=== PATIENT | female | born 1940 | race Asian ===

== ENCOUNTER 2017-08-10 19:14 | Inpatient (IN) | payer OTHER, BC ==
[2017-08-10] MEDS ORDERED: AZITHROMYCIN IV 500 MG in D5W 250 ML IV ONE (19:21)
[2017-08-10] MEDS ORDERED: methylPREDNISolone SOD SUCC 125 MG/2 ML VIAL IVP ONE (19:21)
[2017-08-10] MEDS ORDERED: IPRATROPIUM/ALBUTEROL 3 ML DEYVIAL IH ONE (19:21)
--- NOTE | 2017-08-10 19:21 | EDPHY ---
H & P Time Seen by Provider: 08/10/17 19:15 - Personal History Tetanus Vaccine Date: 2009 - Medical/Surgical History Hx Asthma: No Hx Chronic Respiratory Disease: No Hx Diabetes: No Hx Cardiac Disease: No Hx Renal Disease: No Hx Cirrhosis: No Hx Alcoholism: No Hx HIV/AIDS: No Hx Splenectomy or Spleen Trauma: No Other PMH: L HIP REPLACEMENT, HTN - Social History Smoking Status: Never smoked Constitutional: Initial Vital Signs Temperature (C) 36.4 C 08/10/17 19:16 Heart Rate 102 H 08/10/17 19:16 Respiratory Rate 26 H 08/10/17 19:16 Blood Pressure 183/138 H 08/10/17 19:16 O2 Sat (%) 97 08/10/17 19:16 O2 Delivery Mode CPAP Allergies/Adverse Reactions: Penicillins Allergy (Unknown, Verified 08/10/17 19:24) Home Medications: Medication Instructions Recorded Azithromycin [Zithromax] 250 mg PO DAILY 08/10/17 Bimatoprost 0.01% [Lumigan 0.01% 1 drops EACHEYE DAILY 08/10/17 (*)] Losartan Potassium [Cozaar] 100 mg PO DAILY 08/10/17 Metoprolol Succinate Xr [Toprol Xl 100 mg PO DAILY 08/10/17 100 mg (*)] Rosuvastatin Calcium [Crestor 5mg] 5 mg PO DAILY 08/10/17 Timolol 0.5% [TIMOPTIC 0.5% (*)] 1 drops EACHEYE DAILY 08/10/17 metFORMIN HCL [Glucophage 500 mg 500 mg PO BIDMEAL 08/10/17 (*)] Medical Decision Making - Diagnostics Imaging: I viewed and interpreted images myself ED Course/Re-evaluation: CHIEF COMPLAINT: Shortness of breath HISTORY OF PRESENT ILLNESS: This patient is a 77 y/o female arriving emergently via EMS for evaluation of shortness of breath. She was playing bridge this evening when she suddenly began coughing and then slumped forward. Per EMS report, she was unresponsive and somnolent upon their arrival. EMS placed the patient on CPAP. Upon arrival at the emergency department, she is alert and answering questions appropriately. She remains tachypneic, and s currently on CPAP. She was recently diagnosed with a bronchial infection, and visited her primary care provider earlier today. She was placed on antibiotics at that time. She has a productive cough with pink-tinged sputum. She denies history of chronic lung disease. No fever, chest pain, vomiting, diarrhea, or other associated symptoms. REVIEW OF SYSTEMS: A 10 point review of systems was performed and is negative with the exception of the elements mentioned in the history of present illness. PHYSICAL EXAM: HR, BP, O2 Sat, RR. Temp noted General Appearance: Alert, well hydrated, appropriate, and non-toxic appearing. Head: Atraumatic without scalp tenderness or obvious injury Eyes: Pupils equal, round, reactive to light and accommodation, EOMI, no trauma , no injection. Ears: Clear bilaterally, no perforation, normal landmarks Nose: Atraumatic, no rhinorrhea, clear. Throat: There is no erythema or exudates, no lesions, normal tonsils, mucus membranes moist. Neck: Supple, nontender, no lymphadenopathy. Respiratory: Coarse rhonchi bilaterally. Cardiovascular: Regular rate and rhythm, no murmurs, rubs, or gallops. Good capillary refill all extremities. Gastrointestinal: Abdomen is soft, nontender, non-distended, no masses, no rebound, no guarding, no peritoneal signs. Musculoskeletal: Normal active ROM of all extremities, atraumatic. Neurological: Alert, appropriate, and interactive. Nonfocal neuro exam. Skin: No rashes, good turgor, no nodules on palpation. Past medical history: Hypertension. Hyperlipidemia. Glaucoma. Prediabetic Past surgical history: Noncontributory Family history: Noncontributory. Social history: Nonsmoker. Family at bedside. DIAGNOSTICS/PROCEDURES/CRITICAL CARE TIME: Critical care time spent by me, Dr. Wills, exclusively with this patient was 50 minutes, exclusive of PA time and exclusive of procedures. The organ system at risk was respiratory and I gave IV Ceftriaxone and Zithromax, steroids, DuoNeb, placed the patient on BiPAP, consulted with respiratory therapy, and admitted the patient to [facility] to prevent worsening of the patients condition. DIFFERENTIAL DIAGNOSIS: The differential diagnosis for the patient's shortness of breath and hypoxemia included but was not limited to pneumonia, myocardial infarction, acute mountain sickness, high altitude pulmonary edema, congestive heart failure, and pulmonary embolus. MEDICAL DECISION MAKIN:15 Met EMS at bedside. 77 year old female presents following a period of unresponsiveness secondary to respiratory distress. Exam reveals coarse rhonchi bilaterally. IV established. Plan for chest x-ray. Labs including CBC, chemistries, sepsis protocol. Plan to administer 1g IV Ceftriaxone, 500mg IV Zithromax. Patient placed on BiPAP by respiratory therapist at bedside. Plan to administer 125mg IV methylprednisolone and DuoNeb for symptom relief. 19:40 Lactic acid elevated at 7.3. Patient is in severe sepsis. I suspect this is due to her hypoxemia secondary to her respiratory distress and temporary apnea rather than septic shock. 19:47 Reviewed chest x-ray. Right lower and right middle lobe infiltrate. 2.5 cm laceration on the left posterior scalp 19:51 Reassessed patient. Spoke with patient's family. Reviewed x-ray with patient's family. Consulted with respiratory therapy. Patient continues to need intermittent BiPAP. Plan to admit to [facility]. Repeat lactic acid is 2.1. Elevated lactic acid earlier likely due to patient's hypoxemia. 20:[address] Ruiz, hospitalist. She accepts admission to [facility] for respiratory distress, pneumonia, hypoxemia, and severe sepsis. - Data Points Laboratory Results: Laboratory Results 08/10/17 19:21 08/10/17 19:21 08/10/17 08/10/17 08/10/17 21:01 19:57 19:21 WBC RBC Hgb Hct MCV MCH MCHC RDW Plt Count MPV Neut % (Auto) Lymph % (Auto) Plumas % (Auto) Eos % (Auto) Baso % (Auto) Nucleat RBC Rel Count Absolute Neuts (auto) Absolute Lymphs (auto) Absolute Monos (auto) Absolute Eos (auto) Absolute Basos (auto) Absolute Nucleated RBC Immature Gran % Immature Gran # VBG Lactic Acid 2.4 mmol/L H D mmol/L (0.7-2.1) Sodium 136 mEq/L mEq/L (134-144) Potassium 4.8 mEq/L mEq/L (3.5-5.2) Chloride 91 mEq/L L mEq/L (97-110) Carbon Dioxide 17 mEq/l L mEq/l (22-31) Anion Gap 28 mEq/L H mEq/L (8-16) BUN 11 mg/dL mg/dL (7-23) Creatinine 0.8 mg/dL mg/dL (0.6-1.0) Estimated GFR > 60 Glucose 229 mg/dL H mg/dL (70-100) Calcium 9.7 mg/dL mg/dL (8.5-10.4) Troponin I < 0.012 ng/mL ng/mL (0.000-0.034) NT-Pro-B Natriuret Pep Pending Procalcitonin Pending 08/10/17 08/10/17 19:21 19:21 WBC 10.46 10^3/uL H 10^3/uL (3.80-9.50) RBC 5.15 10^6/uL 10^6/uL (4.18-5.33) Hgb 17.4 g/dL H g/dL (12.6-16.3) Hct 52.9 % H % (38.0-47.0) MCV 102.7 fL H fL (81.5-99.8) MCH 33.8 pg pg (27.9-34.1) MCHC 32.9 g/dL g/dL (32.4-36.7) RDW 13.3 % % (11.5-15.2) Plt Count 216 10^3/uL 10^3/uL (150-400) MPV 11.6 fL fL (8.7-11.7) Neut % (Auto) 33.4 % L % (39.3-74.2) Lymph % (Auto) 50.2 % H % (15.0-45.0) Plumas % (Auto) 11.1 % % (4.5-13.0) Eos % (Auto) 4.2 % % (0.6-7.6) Baso % (Auto) 0.5 % % (0.3-1.7) Nucleat RBC Rel Count 0.0 % % (0.0-0.2) Absolute Neuts (auto) 3.50 10^3/uL 10^3/uL (1.70-6.50) Absolute Lymphs (auto) 5.25 10^3/uL H 10^3/uL (1.00-3.00) Absolute Monos (auto) 1.16 10^3/uL H 10^3/uL (0.30-0.80) Absolute Eos (auto) 0.44 10^3/uL H 10^3/uL (0.03-0.40) Absolute Basos (auto) 0.05 10^3/uL 10^3/uL (0.02-0.10) Absolute Nucleated RBC 0.00 10^3/uL 10^3/uL (0-0.01) Immature Gran % 0.6 % % (0.0-1.1) Immature Gran # 0.06 10^3/uL 10^3/uL (0.00-0.10) VBG Lactic Acid 7.3 mmol/L H mmol/L (0.7-2.1) Sodium Potassium Chloride Carbon Dioxide Anion Gap BUN Creatinine Estimated GFR Glucose Calcium Troponin I NT-Pro-B Natriuret Pep Procalcitonin Medications Given: Discontinued Medications Albuterol/Ipratropium (Duoneb) 3 ml IH EDNOW ONE Stop: 08/10/17 19:22 Last Admin: 08/10/17 19:57 Dose: 3 ml Azithromycin 500 mg/ Dextrose 255 mls @ 255 mls/hr IV EDNOW ONE PRN Reason: Protocol Stop: 08/10/17 20:20 Last Admin: 08/10/17 20:01 Dose: 255 mls Ceftriaxone Sodium/Dextrose (Rocephin 1 Gm (Premix)) 50 mls @ 100 mls/hr IV EDNOW ONE PRN Reason: Protocol Stop: 08/10/17 19:50 Last Admin: 08/10/17 19:38 Dose: 50 mls Sodium Chloride (Ns) 2,200 mls @ 4,400 mls/hr 30 ml/kg infuse over 30 min ( 2200 ml) IV EDNOW ONE PRN Reason: Protocol Stop: 08/10/17 20:19 Last Admin: 08/10/17 20:00 Dose: 2,200 mls Methylprednisolone Sodium Succinate (Solu-Medrol) 125 mg IVP EDNOW ONE Stop: 08/10/17 19:22 Last Admin: 08/10/17 19:38 Dose: 125 mg Departure - Departure Disposition: [facility] Inpatient Acute Clinical Impression: Hypoxemia, Severe sepsis Pneumonia Qualifiers: Pneumonia type: due to unspecified organism Laterality: right Lung location: lower lobe of lung Qualified Code(s): J18.1 - Lobar pneumonia, unspecified organism Condition: Serious Referrals: Patient,NotPresent [Unknown] - As per Instructions Report Scribed for: Erik A Elma Report Scribed by: Elise Glass Date of Report: 08/10/17 Time of Report: 20:07
[2017-08-10 19:37] LABS: % IMMATURE GRANULYOCYTES 0.6 % (0.0-1.1); ABSOLUTE IMMATURE GRANULOCYTES 0.06 10^3/uL (0.00-0.10); ADD DIFF? NO; ADD MORPH? NO; ADD SCAN? NO; ATYPICAL LYMPHOCYTE FLAG 20 (0-99); FRAGMENT RBC FLAG 0 (0-99); HEMATOCRIT 52.9 % (38.0-47.0); HEMOGLOBIN 17.4 g/dL (12.6-16.3); LEFT SHIFT FLG 0 (0-99); LIPEMIA HEMOLYSIS FLAG 80 (0-99); MEAN CELL HEMOGLOBIN 33.8 pg (27.9-34.1); MEAN CELL HEMOGLOBIN CONCENTR. 32.9 g/dL (32.4-36.7); MEAN CELL VOLUME 102.7 fL (81.5-99.8); MEAN PLATELET VOLUME 11.6 fL (8.7-11.7); PLATELET CLUMPS FLAG 0 (0-99); PLATELET COUNT 216 10^3/uL (150-400); RED BLOOD CELL COUNT 5.15 10^6/uL (4.18-5.33); RED CELL DISTRIBUTION WIDTH 13.3 % (11.5-15.2)
[2017-08-10] MEDS ORDERED: NS 2,200 ML IV ONE (19:50)
[2017-08-10 19:56] LABS: ANION GAP 28 mEq/L (8-16); CALCIUM 9.7 mg/dL (8.5-10.4); CARBON DIOXIDE 17 mEq/l (22-31); CHLORIDE 91 mEq/L (97-110); CREATININE 0.8 mg/dL (0.6-1.0); GLOMERULAR FILTRATION RATE > 60; GLUCOSE 229 mg/dL (70-100); POTASSIUM 4.8 mEq/L (3.5-5.2); SODIUM 136 mEq/L (134-144)
[2017-08-10 20:08] LABS: TROPONIN I < 0.012 ng/mL (0.000-0.034)
[2017-08-10] MEDS ORDERED: ACETAMINOPHEN 650 MG SUPP PR PRN (21:17)
[2017-08-10] MEDS ORDERED: ALBUTEROL 3 ML DEYVIAL IH PRN (21:17)
[2017-08-10] MEDS ORDERED: ONDANSETRON 4 MG/2 ML VIAL IVP PRN (21:17)
[2017-08-10] MEDS ORDERED: IOPAMIDOL (ISOVUE 370) 100 ML BTL IV ONE (21:39)
[2017-08-10 22:16] LABS: PROCALCITONIN 0.03 ng/mL (0.02-0.10)
[2017-08-10] MEDS ORDERED: D50W 25 GM/50 ML VIAL IVP PRN (22:33)
[2017-08-10 23:05] LABS: BICARBONATE 18 mEq/L (22-26); MEASURED OXYGEN SATURATION 98 % (92-95); PCO2 33 mmHg (34-38); PO2 147 mmHg (65-75); TCO2 19 mEq/L (23-27)
[2017-08-10 23:06] LABS: CPAP YES; O2 CONCENTRATIION 60 % (0-100); P/F RATIO 245 RATIO; PATIENT RATE 24; TOTAL RATE 8
--- NOTE | 2017-08-10 23:11 | GHP ---
[f rep st] HISTORY AND PHYSICAL DATE OF ADMISSION: 08/10/2017 CHIEF COMPLAINT: Cough, shortness of breath. HISTORY OF PRESENT ILLNESS: The patient is a 77-year-old female with history of hypertension and hyperlipidemia, who presented to the emergency department via EMS after she had sudden severe shortness of breath associated with an apneic episode, during which time she was unresponsive. She was playing bridge with some friends and she started coughing. It sounds like she may have had some mucus plugging as she was unable to move air effectively and subsequently slumped over. EMS was called and when they arrived they placed the patient on CPAP. Her condition improved on arrival to the ED where she was awake, alert and able to answer questions. She was started on BiPAP and continues on BiPAP during my interview. She recently traveled home on an airplane from the [facility]. Over the past 4 days , she has had a productive cough. She denies chest pain. She endorses orthopnea, but denies lower extremity edema. She denies fevers. Her states many years ago she had some problems with asthma and wheezing, though this has not persisted and she does not use inhalers. She saw her primary care physician today, who diagnosed her with bronchitis and started her on azithromycin. She has no history of chronic heart or lung disease. In the ED she was given ceftriaxone and azithromycin for suspected right lower lobe pneumonia. She is currently saturating 100% on BiPAP in the step-down unit and is admitted to the hospital for further management. PAST MEDICAL HISTORY: 1. Hypertension. 2. Hyperlipidemia. 3. Glaucoma. 4. Prediabetes. MEDICATIONS: Please see [employer] for completed outpatient medication list. ALLERGIES: Penicillin. FAMILY HISTORY: Reviewed and noncontributory. SOCIAL HISTORY: The patient is . She lives with her . She is a lifetime nonsmoker. No alcohol. She is independent. REVIEW OF SYSTEMS: A 10-point review of systems was performed and is negative except as stated in HPI. OBJECTIVE: VITAL SIGNS: Temperature is 36.4, current blood pressure 121/81, heart rate 85, respiratory rate 26, she is 98% on CPAP. GENERAL: Patient is awake, alert, oriented, in no acute distress. HEENT: Head is atraumatic, normocephalic. Pupils equal, round, and reactive to light. Extraocular muscles intact. Oropharynx is not visualized as she is wearing a BiPAP mask. NECK: Supple. There is no appreciable JVD, though this is difficult to assess with her straps from her BiPAP mask. HEART: Regular rate and rhythm without murmur. LUNGS: Reveal coarse breath sounds throughout both lung borjas with expiratory wheezes diffusely. ABDOMEN: Soft, nontender, nontender. Normoactive bowel tones. EXTREMITIES: She has trace bilateral lower extremity edema. Extremities otherwise warm, well perfused. NEUROLOGIC: Grossly nonfocal. She moves all 4 extremities. LABORATORY DATA: CBC reveals a white blood cell count of 10.5, with 33% neutrophils and 50% lymphocytes. Lactate on arrival was 7.3, repeat lactate is 2.4. Basic metabolic panel is remarkable for a chloride of 91, CO2 of 17, anion gap of 28, blood glucose 229, creatinine is normal at 0.8. Troponin is negative. Procalcitonin is 0.03. NT proBNP is pending. Chest x-ray is personally reviewed and interpreted, reveals diffuse increased interstitial markings with no focal consolidation, suspicious for possible viral pneumonia versus pulmonary edema. The EKG is ordered and currently pending. CT pulmonary angiogram is also pending. ASSESSMENT/PLAN: The patient is a 77-year-old female with history of hypertension, hyperlipidemia, who is admitted to the hospital with acute hypoxemic respiratory failure. 1. Acute hypoxemic respiratory failure. She received azithromycin and ceftriaxone in the ED. Procalcitonin is 0.03, which makes bacterial infection unlikely. I suspect her presentation is more consistent with a viral etiology and also considered heart failure though she does not otherwise appear volume overloaded. A BNP is pending. Echocardiogram is ordered for the morning. Will continue BiPAP, scheduled DuoNeb, p.r.n. albuterol nebs. Will empirically treat with Tamiflu. If respiratory pathogen panel is negative for flu, can discontinue her Tamiflu. A CT pulmonary angiogram was ordered and currently pending to rule out pulmonary embolism and better evaluate her lung parenchyma. Blood cultures are pending. A sputum culture is sent. Will keep her n.p.o. while she is on BiPAP. She received 125 mg of IV Solu-Medrol. Will continue oral prednisone for wheezing. 2. Anion gap metabolic acidosis. This is likely secondary to lactic acidosis. I do not think the elevated lactate of 7 represents sepsis, but rather she likely had a hypoperfused state given her respiratory arrest prior to arrival. A repeat lactate has already come down to 2.4. Will continue trend to normal. 3. Hyperglycemia. The patient carries a diagnosis of prediabetes. Her metformin is held given her contrast studies. Will check an A1c to evaluate for diabetes and provide sliding scale insulin for glycemic control. 4. Hypertension. She is currently normotensive. Will continue her losartan but hold her beta leodan for now given her wheezing. 5. Hyperlipidemia. Continue statin. DEEP VENOUS THROMBOSIS PROPHYLAXIS: Lovenox. CODE STATUS: Patient is full code. DISPOSITION: Admitted to inpatient status. Anticipate she will require greater than 48 hours hospitalization for ongoing management of her acute hypoxemic respiratory failure. /[id number]/MODL MTDD
--- NOTE | 2017-08-10 23:29 | CPEKG ---
Heart Rate: 81 RR Interval: 741 P-R Interval: 176 QRSD Interval: 82 QT Interval: 424 QTC Interval: 493 P Lincoln: 55 QRS Lincoln: 31 T Wave Lincoln: 80 EKG Severity - ABNORMAL ECG - EKG Impression: SINUS RHYTHM EKG Impression: BORDERLINE PROLONGED QT INTERVAL Electronically Signed By: Manjit Clark 12-Aug-2017 20:51:02
[2017-08-11 00:35] LABS: HEMOGLOBIN A1C 6.4 % (4.0-6.0)
[2017-08-11 04:54] LABS: % IMMATURE GRANULYOCYTES 0.5 % (0.0-1.1); ABSOLUTE IMMATURE GRANULOCYTES 0.03 10^3/uL (0.00-0.10); ADD DIFF? NO; ADD MORPH? NO; ATYPICAL LYMPHOCYTE FLAG 10 (0-99); HEMOGLOBIN 14.3 g/dL (12.6-16.3); LEFT SHIFT FLG 0 (0-99); LIPEMIA HEMOLYSIS FLAG 90 (0-99); RED CELL DISTRIBUTION WIDTH 13.2 % (11.5-15.2)
[2017-08-11 05:09] LABS: ADD SCAN? NO; FRAGMENT RBC FLAG 20 (0-99); HEMATOCRIT 40.9 % (38.0-47.0); MEAN CELL HEMOGLOBIN 33.5 pg (27.9-34.1); MEAN CELL VOLUME 95.8 fL (81.5-99.8); MEAN PLATELET VOLUME 11.2 fL (8.7-11.7); PLATELET CLUMPS FLAG 10 (0-99); PLATELET COUNT 165 10^3/uL (150-400); RED BLOOD CELL COUNT 4.27 10^6/uL (4.18-5.33)
[2017-08-11 05:12] LABS: ANION GAP 12 mEq/L (8-16); CALCIUM 8.2 mg/dL (8.5-10.4); CARBON DIOXIDE 21 mEq/l (22-31); CHLORIDE 107 mEq/L (97-110); CREATININE 0.6 mg/dL (0.6-1.0); GLOMERULAR FILTRATION RATE > 60; GLUCOSE 167 mg/dL (70-100); SODIUM 140 mEq/L (134-144)
[2017-08-11] MEDS: IPRATROPIUM/ALBUTEROL 3 ML DEYVIAL IH SCH ×4 (05:36→21:56)
[2017-08-11] MEDS: INSULIN LISPRO 100 UNIT/ML SC SCH ×3 (08:53→17:36)
[2017-08-11] MEDS: ROSUVASTATIN CALCIUM 10 MG TAB PO SCH (08:54)
[2017-08-11] MEDS: predniSONE 20 MG TAB PO SCH (08:54)
[2017-08-11] MEDS: TIMOLOL 0.5% 15 ML OPHT.BTL EACHEYE SCH (08:55)
[2017-08-11] MEDS: ENOXAPARIN 40 MG/0.4 ML SYR SC SCH (08:59)
[2017-08-11] MEDS ORDERED: NON-FORMULARY NEW DRUG (Losartan Potassium [Cozaar] 100 MG) PO SCH (09:00)
[2017-08-11] MEDS ORDERED: METOPROLOL SUCCINATE XR 100 MG TAB PO SCH (09:00)
[2017-08-11] MEDS ORDERED: LOSARTAN POTASSIUM 50 MG TAB PO SCH (09:00)
[2017-08-11] MEDS ORDERED: NON-FORMULARY NEW DRUG (Rosuvastatin Calcium [Crestor 5mg] 5 MG) PO SCH (09:00)
[2017-08-11] MEDS ORDERED: BIMATOPROST 0.03% EACHEYE SCH ×2 (09:00→21:00)
--- NOTE | 2017-08-11 10:25 | PDMN ---
Medical Necessity Medical necessity: est los>2mn for acute hypoxic resp failure w/resp arrest CLINICAL SUPPORT TECH , consistent w/viral etiology; AGMA, hyperglycemia, r/o CHF & PE; admit to ICU/ SDU for BiPAP, scheduled nebs; comorbid htn, hld; per order and H&P 08/10/17
--- NOTE | 2017-08-11 11:47 | ASMTCMCOM ---
CM Note CM Note Notes: 08/11/2017 Case Management Note Reviewed chart. D/C needs unclear at this time. OT recommending home d/c with pt at baseline for ADL's Case Management d/c poc: anticipating home with family support when medically stable with follow up as directed. Awaiting PT evals for further guidance. Case Management to follow. Date Signed: 08/11/2017 11:47 AM Electronically Signed By:Lynsey Ibarra RN
--- NOTE | 2017-08-11 11:53 | HOSPPROG ---
Hospitalist Progress Note Assessment/Plan: Initial encounter This is 77 yo female who was admitted due to Acute hypoxic resp failure with acute onset while playing cards. Etiology is likely viral with the possibility of mucus plugging as the initial events. She required CPAP initially but has weaned off this and is now on RA. Viral studies are c/w RSV. #Acute Hypoxic Respiratory Failure #Viral Pneumonia #Reactive Airway Disease with exacerbation #s/p Apneic episode with unresponsiveness #Metabolic Acidosis, resolved #HTN: BP soft Plan: -Ok to move to med surg -Cont with Prednisone -Ok to leave off abx -Hold Losartan, Toprol, restart soon -PT/OT -f/u TTE -Lovenox for DVT proph Keep inpatient. Subjective: She feels better. Now back to RA. Some difficulty with inspiration. No cough. Afebrile. Off CPAP. No CP, no leg swelling. Objective: Vital Signs Temp Pulse Resp BP Pulse Ox 36.9 C 66 15 117/57 L 99 08/11/17 07:58 08/11/17 11:09 08/11/17 11:09 08/11/17 08:52 08/11/17 11:09 Microbiology 08/10/17 21:35 - Final Sputum, Expectorated 08/10/17 21:35 Respiratory Panel (PCR) - Final Nasal, Sinus - Swab Respiratory Syncytial Virus Laboratory Results 08/11/17 04:45 08/11/17 04:45 08/10/17 08/11/17 08/12/17 05:59 05:59 05:59 Intake Total 2470 Output Total 800 Balance 1670 - Physical Exam Constitutional: no apparent distress Eyes: PERRL, EOMI Ears, Nose, Mouth, Throat: moist mucous membranes, hearing normal Cardiovascular: regular rate and rhythym, No JVD, No edema Respiratory: no respiratory distress, expiratory wheeze Gastrointestinal: normoactive bowel sounds, soft, non-tender abdomen Genitourinary: no bladder fullness Skin: warm, No erythema Musculoskeletal: full muscle strength Neurologic: AAOx3 Psychiatric: interacting appropriately, not anxious, not encephalopathic, thought process linear ICD10 Worksheet Patient Problems: Problems Problem Status Onset Hypoxemia Acute Pneumonia Acute Severe sepsis Acute chronic disease mgmt/transitional care Acute Fracture of proximal end of femur Active
--- NOTE | 2017-08-11 14:06 | ECHO ---
[email or web address] [address] [address] Main: [phone] Fax: Transthoracic Echocardiogram Name: RASHAUN GONZALEZ MR#: [id number] Study Date: 08/11/2017 Study Time: 09:52 AM Date of : 1940 Age: 77 year(s) Height: 154.9 cm (61 in.) Weight: 66.68 kg (147 lb.) BSA: 1.66 m2 Gender: Female Examination: Echo Indication: Respiratory Failure Image Quality: Contrast: Requested by: Philly Ruiz BP: 117 mmHg/57 mmHg Heart Rate: Rhythm: Normal sinus rhythm Indication: Respiratory Failure Procedure Staff Molding Room Supervisor: Gurdeep Hernandez Reading Physician: Dalton Borrero Requesting Provider: Conclusions: Normal size left ventricle. No LV hypertrophy. Normal global systolic LV function. EF is 68 %. No regional wall motion abnormality. Diastolic dysfunction is present. . Normal size right ventricle. The left atrium is normal in size. Trivial TR, may not represent actual RVSP Measurements: Chambers Valvular Assessment AV/MV Valvular Assessment TV/PV Normal Normal Normal Name Value Range Name Value Range Name Value Range Ao Regi (MM): 3.2 cm (2.2 cm-3.7 AV Vmax: 1.38 m/s (1 m/s-1.7 TR Vmax: 2.48 mm/s ( - ) cm) m/s) TR PGmax: 25 mmHg ( - ) IVSd (2D): 0.9 cm (0.6 cm-1.1 AV maxP mmHg ( - ) syst. PAP: 30 mmHg ( - ) cm) LVOT Vmax: 1.11 m/s (0.7 m/s-1.1 PV Vmax: 0.87 m/s (0.6 m/s-0.9 LVDd (2D): 3.3 cm (3.9 cm-5.3 m/s) m/s) cm) MV E Vmax: 0.49 m/s ( - ) PV PGmax: 3 mmHg ( - ) LVDs (2D): 2.1 cm (2.1 cm-4 MV A Vmax: 0.76 m/s ( - ) cm) MV E/A: 0.64 ( - ) LVPWd (2D): 1.0 cm ( - ) LVEF (2D): 68 (>=54 %) Continued Measurements: Chambers Valvular Assessment AV/MV Valvular Assessment TV/PV Patient: RASHAUN GONZALEZ Study Date: 08/11/2017 Page 1 of 2 09:52 AM Name Value Name Value Name Value LADs Lon.2 cm MV E/E' Septal: 13.00 CVP (est.): 5 mmHg LA Area: 13.2 cm2 MV E/E' Lateral: 11.80 LA Volume: 30 ml LA Volume Index: 18.1 ml/m2 Findings: Left Ventricle: Normal size left ventricle. No LV hypertrophy. Normal global systolic LV function. EF is 68 %. No regional wall motion abnormality. Diastolic dysfunction is present. . Right Ventricle: Normal size right ventricle. Normal RV function. Left Atrium: The left atrium is normal in size. Right Atrium: The right atrium is normal in size. Mitral Valve: The mitral valve is normal in appearance and function. No mitral stenosis is present. Trivial mitral valve regurgitation. Aortic Valve: The aortic valve is tri-leaflet. The aortic valve is normal in appearance and function. Tricuspid Valve: The tricuspid valve is normal in appearance and function. Trivial TR, may not represent actual RVSP Pulmonic Valve: The pulmonic valve is normal in appearance and function. Aorta: The aorta is normal. Pericardium: No pericardial effusion. (No Signature Object) Patient: RASHAUN GONZALEZ Study Date: 08/11/2017 Page 2 of 2 09:52 AM [id number]
[2017-08-11] MEDS ORDERED: OSELTAMIVIR PHOSPHATE 75 MG CAP PO SCH (22:21)
[2017-08-12] MEDS: IPRATROPIUM/ALBUTEROL 3 ML DEYVIAL IH SCH ×3 (05:42→16:51)
[2017-08-12 07:28] VITALS: BP 153/81; TEMP 97.9
[2017-08-12] MEDS: INSULIN LISPRO 100 UNIT/ML SC SCH ×2 (08:10→11:42)
[2017-08-12] MEDS: ROSUVASTATIN CALCIUM 10 MG TAB PO SCH (08:25)
[2017-08-12] MEDS: TIMOLOL 0.5% 15 ML OPHT.BTL EACHEYE SCH (08:26)
[2017-08-12] MEDS: ENOXAPARIN 40 MG/0.4 ML SYR SC SCH (08:26)
[2017-08-12] MEDS: predniSONE 20 MG TAB PO SCH (08:26)
[2017-08-12 08:56] LABS: BASE EXCESS -0.7 mEq/L (-2.5-2.5); BICARBONATE 22 mEq/L (22-26); MEASURED OXYGEN SATURATION 93 % (92-95); PCO2 32 mmHg (34-38); PO2 65 mmHg (65-75); TCO2 23 mEq/L (23-27)
[2017-08-12 08:57] LABS: O2 CONCENTRATIION ROOM AIR % (0-100); P/F RATIO 0 RATIO
[2017-08-12 11:01] VITALS: PULSE 90; RESP 15; O2SAT 94
--- NOTE | 2017-08-12 14:49 | ASMTCMCOM ---
CM Note CM Note Notes: 08/12/2017 Case Management Note Reviewed chart. PT recommending Home. Case Management d/c poc: Home with family support when medically stable with follow up as directed. Case Management available if needs change. Date Signed: 08/12/2017 02:49 PM Electronically Signed By:Lynsey Ibarra RN
--- NOTE | 2017-08-12 15:50 | PDDCSUM ---
Discharge Summary Discharge Summary: This is 77 yo female who was admitted due to Acute hypoxic resp failure with acute onset while playing cards. Etiology is likely viral with the possibility of mucus plugging as the initial event. She required CPAP initially but has weaned off this and is now on RA. Viral studies are c/w RSV. She was transitioned out of the SDU to Med Surg yesterday and has done well. She continues on RA. No SOB or cough. Ready for discharge DDX: #Acute Hypoxic Respiratory Failure #Viral Pneumonia #Reactive Airway Disease with exacerbation #s/p Apneic episode with unresponsiveness #Metabolic Acidosis, resolved #HTN: BP soft Exam: NAD AAOX3 RRR Mildly decreased lung sounds S/NT/ND no LE edema Discharge Meds: See med rec F/u: Per above: total time spent on discharge is 35 minutes
--- NOTE | 2017-08-13 13:50 | ASDISCHSUM ---
Discharge Information Plan Status:Home with No Needs Medically Cleared to Leave: Discharge Date:08/12/2017 05:00 PM CM D/C Disposition:Home, Routine, Self-Care ADT D/C Disposition:Home, Routine, Self-Care Projected Discharge Date:08/12/2017 05:00 PM Transportation at D/C:Family Discharge Delay Reason: Follow-Up Date:08/12/2017 05:00 PM Discharge Slot: Final Diagnosis: Placement Information Patient Contact Information Contact Name:BRETROSELIAGONZALO Relationship: Address:[address] [place] City:[place] Alternate Phone: [facility]/Zip Code:[place] [address] Email: Financial Information Financial Class: Primary Plan Desc:MEDICARE INPATIENT Primary Plan Number:[id number] Secondary Plan Desc:[facility] Secondary Plan Number:[id number] Assessment Information [facility] CM Progress Note CM Note CM Note Notes: 08/11/2017 Case Management Note Reviewed chart. D/C needs unclear at this time. OT recommending home d/c with pt at baseline for ADL's Case Management d/c poc: anticipating home with family support when medically stable with follow up as directed. Awaiting PT evals for further guidance. Case Management to follow. Date Signed: 08/11/2017 11:47 AM Electronically Signed By:Lynsey Ibarra RN [facility] CM Progress Note CM Note CM Note Notes: 08/12/2017 Case Management Note Reviewed chart. PT recommending Home. Case Management d/c poc: Home with family support when medically stable with follow up as directed. Case Management available if needs change. Date Signed: 08/12/2017 02:49 PM Electronically Signed By:Lynsey Ibarra RN Intervention Information Intervention Type:*IM-Signed Date of Service:08/12/2017 04:10 PM Patient Type:Inpatient Staff Member:Sue Gonzales Hours: Discipline: Severity: Comment:
== END 2017-08-12 17:00 | disposition home or self-care (01) | DRG 189 ==
LOC: EDUNIT# → F2N 21:21 → F3E 08-11 14:24
PROVIDERS: ADMIT Hospitalist; ATTEND Family Medicine
DX: J96.01 Acute respiratory failure with hypoxia (principal); J12.1 Respiratory syncytial virus pneumonia; J45.901 Unspecified asthma with (acute) exacerbation; E87.2 Acidosis; R73.03 Prediabetes; I10 Essential (primary) hypertension; E78.5 Hyperlipidemia, unspecified; H40.9 Unspecified glaucoma; Z96.642 Presence of left artificial hip joint
CPT/HCPCS: 96365; 97116-GP; 97161-GP; 97165-GO; 97530-GP; G8978-GP-CJ; G8979-GP-CI; G8980-GP-CI; G8987-GO-CI; G8988-GO-CI; G8989-GO-CI; J0456; J0696; J1650; J1815; J2930; Q9967

== ENCOUNTER → 2017-09-12 | Outpatient (CLI) | payer OTHER, BC | LOC: BMCIMAGING 13:27 | PROVIDERS: ATTEND Internal Medicine | DX: Z12.31 Encounter for screening mammogram for malignant neoplasm of breast (principal); Z13.820 Encounter for screening for osteoporosis; M81.0 Age-related osteoporosis without current pathological fracture ==

== ENCOUNTER → 2017-09-28 | Outpatient (CLI) | payer OTHER, BC | LOC: BMCIMAGING 14:09 | PROVIDERS: ATTEND Internal Medicine | DX: I50.9 Heart failure, unspecified (principal) ==

== ENCOUNTER → 2018-09-19 | Outpatient (CLI) | payer OTHER, BC | LOC: BMCIMAGING 12:53 | PROVIDERS: ATTEND Internal Medicine | DX: Z12.31 Encounter for screening mammogram for malignant neoplasm of breast (principal) ==